=== PATIENT | female | born 1980 | race Hispanic/Latino ===

== ENCOUNTER 2018-02-26 00:01 | Emergency (ER) | payer BC ==
[2018-02-26 00:09] VITALS: BP 160/83; PULSE 90; RESP 16; TEMP 98.3; O2SAT 97
[2018-02-26] MEDS ORDERED: Tdap Vaccine 0.5 ml Vial (10-64 yrs) IM ONE ×2 (00:40→01:08)
--- NOTE | 2018-02-26 01:18 | ED PDOC ---
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 Patient reports she was at a bar and tried to catch a falling glass. She sustained a laceration to left 3rd digit. Wound actively bleeding but denies any numbness, weakness, decreased ROM or other injuries. PMD: None provided. Past Medical History Reviewed: Historical Data, Nursing Documentation, Vital Signs Vital Signs: Last Vital Signs Temp 98.3 F 02/26/18 00:06 Pulse 90 02/26/18 00:06 Resp 16 02/26/18 00:06 BP 160/83 H 02/26/18 00:06 Pulse Ox 97 02/26/18 02:11 - Medical History PMH: No Chronic Diseases - Surgical History Surgical History: No Surg Hx - Family History Family History: States: No Known Family Hx - Allergies Allergies/Adverse Reactions: Allergies Allergy/AdvReac Type Severity Reaction Status Date / Time No Known Allergies Allergy Verified 02/26/18 00:06 Review of Systems ROS Statement: Except As Marked, All Systems Reviewed And Found Negative Musculoskeletal: Positive for: Hand Pain (left 3rd digit laceration) Neurological: Negative for: Weakness, Numbness Physical Exam - Reviewed Nursing Documentation Reviewed: Yes Vital Signs Reviewed: Yes - Physical Exam Comments: GENERAL APPEARANCE: Patient is awake, alert, oriented x 3, in no acute distress. SKIN: Warm, dry; (-) cyanosis. EXTREMITIES: (+) 1cm laceration to distal volar aspect of the left 3rd digit, (- ) tenderness, (-) swelling, (-) ecchymosis (-) deformity, (-) distal neurovascular deficit. (+) FROM. NEURO AND PSYCH: Mental status as above. - ECG O2 Sat by Pulse Oximetry: 97 (RA) Pulse Ox Interpretation: Normal Medical Decision Making Medical Decision Making: Time: 00:11 Initial Impression: left digit injury Initial Plan: --Adacel 0.5 ml IM --Dermabond 00:45 -Wound at the L 3rd digit measuring 1 cm, was irrigated with NS and re- approximated with dermabond by RIMMA, clean dressing applied. 01:00 Advised to follow up with primary care physician in 1-2 days without fail. Return to the emergency room at any time for any new or worsening symptoms. Patient states she fully agrees with and understands discharge instructions. States that hshe agrees with the plan and disposition. Verbalized and repeated discharge instructions and plan. I have given the patient opportunity to ask any additional questions. ----- Scribe Attestation: Documented by Marcos Munoz, acting as a scribe for Melody Swan PA-C. Provider Scribe Attestation: All medical record entries made by the Scribe were at my direction and personally dictated by me. I have reviewed the chart and agree that the record accurately reflects my personal performance of the history, physical exam, medical decision making, and the department course for this patient. I have also personally directed, reviewed, and agree with the discharge instructions and disposition. Disposition - Clinical Impression Clinical Impression: Finger laceration - Patient ED Disposition Is Patient to be Admitted: No - Disposition Disposition: Routine/Home Disposition Time: 01:00 Condition: STABLE Additional Instructions: Thank you for letting us take care of you today. You were treated for finger laceration. The emergency medical care you received today was directed at your acute symptoms. Avoid getting dermabond wet. Return to the Emergency Department if your symptoms worsen, do not improve, or if you have any other problems. Please contact your doctor in 2 days for re-evaluation and follow up. Bring any paperwork you were given at discharge with you along with any medications you are taking to your follow up visit. Our treatment cannot replace ongoing medical care by a primary care provider (PCP) outside of the emergency department. Thank you for allowing the [email or web address] team to be part of your care today. Instructions: Laceration Repair With Glue (DC) Forms: [facility] (Serbian) - PA / CHEESEMAKER HELPER / Resident Statement MD/DO has reviewed & agrees with the documentation as recorded.
== END 2018-02-26 01:35 | disposition home or self-care (01) ==
LOC: H.ER 00:01
DX: S61.213A Laceration without foreign body of left middle finger without damage to nail, initial encounter (principal); W25.XXXA Contact with sharp glass, initial encounter; Y92.89 Other specified places as the place of occurrence of the external cause